=== PATIENT | female | born 1980 | race Caucasian/White ===

== ENCOUNTER 2020-07-12 13:59 | Emergency (ER) | payer BC, OTHER ==
[~2020-07-12] VITALS: Ht 165 cm; Wt 55.0 kg
--- NOTE | 2020-07-12 14:20 | ED General ---
General Chief Complaint: Allergic Reaction Stated Complaint: HIGH BLOOD PRESSURE Source of Information: Patient Exam Limitations: No Limitations History of Present Illness Date Seen by Provider: Jul 12, 2020 Time Seen by Provider: 13:59 Initial Comments Patient presents ER by private conveyance from the clinic where she was receiving her COVID-19 vaccine approximately 20 minutes prior when she started having a shaking episode and noticed her blood pressure around 220/150. She has a history of high blood pressure and several of her family members have had coronary disease and hypertension. She has been treated on multiple medications for her hypertension and had very labile results having to come off the medic ann on March,. 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 She is only on gabapentin for a pinched nerve in her neck at this time. She notices that her blood pressure typically goes up with her periods and she just started her menstrual cycle. She is not having any chest pain shortness of air but she is having some shaking and feels like her vision is narrowing and she is going to pass out. She says she does have a history of some anxiety and has had to use Ativan in the past but does not use anything for anxiety presently because she had some bad adverse effects from Cymbalta. Her father had early coronary onset with heart attack at age 58. She reports her blood pressure has been as high as 250/160 in the past. Allergies and Home Medications Allergies Coded Allergies: metoclopramide (Verified Allergy, Unknown, 07/12/20) prasterone (DHEA) (Verified Allergy, Unknown, 07/12/20) prochlorperazine (Verified Allergy, Unknown, 07/12/20) promethazine (Verified Allergy, Unknown, 07/12/20) duloxetine (Verified Adverse Reaction, Unknown, 07/12/20) Patient Home Medication List Home Medication List Reviewed: Yes Review of Systems Review of Systems Constitutional: No chills, No fever, No malaise EENTM: No ear discharge, No ear pain Respiratory: No cough, No short of breath Cardiovascular: see HPI; No chest pain, No edema, No Hx of Intervention Gastrointestinal: No abdominal pain, No nausea, No vomiting Genitourinary: No discharge, No dysuria Musculoskeletal: No back pain, No joint pain; neck pain (chronic) All Other Systems Reviewed Negative Unless Noted: Yes Past [id number] Hx Patient Social History Alcohol Use: Denies Use Smoking Status: Former Smoker Type Used: Cigarettes Former Smoker, Quit: Apr 28, 2020 Physical Exam Vital Signs Vital Signs - First Documented 07/12/20 14:35 Temp 36.2 Pulse 95 Resp 18 B/P (MAP) 199/117 (144) Pulse Ox 100 O2 Delivery Room Air Capillary Refill : Height, Weight, BMI Height: '" Weight: lbs. oz. kg; BMI Method: General Appearance: Anxious, Moderate Distress Eyes: Bilateral Eye Normal Inspection, Bilateral Eye PERRL, Bilateral Eye EOMI HEENT: PERRL/EOMI, Pharynx Normal, Moist Mucous Membranes Neck: Full Range of Motion, Normal Inspection, Non Tender Respiratory: Lungs Clear, Normal Breath Sounds, No Accessory Muscle Use, No Respiratory Distress Cardiovascular: Regular Rate, Rhythm, No Edema, Normal Peripheral Pulses Gastrointestinal: Non Tender, Soft Neurologic/Psychiatric: Alert, Oriented x3, Other (Anxious affect, tremulous) Skin: Normal Color, Warm/Dry Progress/Results/Core Measures Suspected Sepsis SIRS Temperature: Pulse: Respiratory Rate: Laboratory Tests 07/12/20 14:11: White Blood Count 4.8 Blood Pressure / Mean: Laboratory Tests 07/12/20 14:11: Creatinine 0.80, Platelet Count 171, Total Bilirubin 0.3 Results/Orders Lab Results Laboratory Tests Test 07/12/20 14:11 07/12/20 14:15 Range/Units White Blood Count 4.8 4.3-11.0 10^3/uL Red Blood Count 3.91 L 4.35-5.85 10^6/uL Hemoglobin 12.0 11.5-16.0 G/DL Hematocrit 36 35-52 % Mean Corpuscular Volume 93 80-99 FL Mean Corpuscular Hemoglobin 31 25-34 PG Mean Corpuscular Hemoglobin Concent 33 32-36 G/DL Red Cell Distribution Width 13.2 10.0-14.5 % Platelet Count 171 130-400 10^3/uL Mean Platelet Volume 13.0 H 7.4-10.4 FL Immature Granulocyte % (Auto) 0 % Neutrophils (%) (Auto) 48 42-75 % Lymphocytes (%) (Auto) 38 12-44 % Monocytes (%) (Auto) 12 0-12 % Eosinophils (%) (Auto) 1 0-10 % Basophils (%) (Auto) 1 0-10 % Neutrophils # (Auto) 2.3 1.8-7.8 X 10^3 Lymphocytes # (Auto) 1.8 1.0-4.0 X 10^3 Monocytes # (Auto) 0.6 0.0-1.0 X 10^3 Eosinophils # (Auto) 0.1 0.0-0.3 10^3/uL Basophils # (Auto) 0.0 0.0-0.1 10^3/uL Immature Granulocyte # (Auto) 0.0 0.0-0.1 10^3/uL Sodium Level 142 135-145 MMOL/L Potassium Level 3.8 3.6-5.0 MMOL/L Chloride Level 103 98-107 MMOL/L Carbon Dioxide Level 27 21-32 MMOL/L Anion Gap 12 5-14 MMOL/L Blood Urea Nitrogen 13 7-18 MG/DL Creatinine 0.80 0.60-1.30 MG/DL Estimat Glomerular Filtration Rate > 60 BUN/Creatinine Ratio 16 Glucose Level 99 70-105 MG/DL Calcium Level 9.7 8.5-10.1 MG/DL Corrected Calcium 8.5-10.1 MG/DL Total Bilirubin 0.3 0.1-1.0 MG/DL Aspartate Amino Transf (AST/SGOT) 14 5-34 U/L Alanine Aminotransferase (ALT/SGPT) 7 0-55 U/L Alkaline Phosphatase 69 40-136 U/L Troponin I < 0.30 <0.30 NG/ML C-Reactive Protein 0.14 <0.50 MG/DL Total Protein 7.9 6.4-8.2 GM/DL Albumin 5.0 H 3.2-4.5 GM/DL Blood Gas Puncture Site RT RADIAL Blood Gas Patient Temperature 36.2 Arterial Blood pH 7.46 H 7.37-7.43 Arterial Blood Partial Pressure CO2 41 35-45 MMHG Arterial Blood Partial Pressure O2 87 79-93 MMHG Arterial Blood HCO3 29 H 23-27 MMOL/L Arterial Blood Total CO2 30.5 21.0-31.0 MMOL/L Arterial Blood Oxygen Saturation 97 94-100 % Arterial Blood Base Excess 4.9 H -2.5-2.5 MMOL/L Jero Test OK Blood Gas Ventilator Setting NO Blood Gas Inspired Oxygen ROOM AIR My Orders Orders - BRIANNE RAMIREZ Arterial Blood Gas (07/12/20 14:20) Cbc With Automated Diff (07/12/20 14:20) Comprehensive Metabolic Panel (07/12/20 14:20) Crp Fs (07/12/20 14:20) Troponin I Fs (07/12/20 14:20) Continuous Ekg Monitoring (07/12/20 14:20) Ekg Tracing (07/12/20 14:20) Lorazepam Injection (Ativan Injection) (07/12/20 14:30) Medications Given in ED Current Medications Medications Dose Ordered Sig/Paul Route Start Time Stop Time Status Last Admin Dose Admin Lorazepam 0.5 mg ONCE ONCE IVP 07/12/20 14:30 07/12/20 14:31 DC 07/12/20 14:30 0.5 MG Vital Signs/I&O 07/12/20 14:35 Temp 36.2 Pulse 95 Resp 18 B/P (MAP) 199/117 (144) Pulse Ox 100 O2 Delivery Room Air Capillary Refill : Progress Note #1: Time: 14:20 Progress Note Suspect anxiety attack related to the proximity of getting the Covid vaccine 20 minutes prior to it starting. She is shaking and has narrowed vision. We will get an ABG to help confirm this differential. However when she arrives her blood pressure is 220/120 and just as she sits and rests her blood pressure has already come down to 190/96. Plan to give her half a milligram of Ativan while we work her up for other possibilities. If the ABG does not support our differential we may do a rule out troponin. She says in the past her BNP and D- dimer is always elevated. Pulmonary embolism is not on the differential as it does not match her history and she has normal oxygen saturation and heart rate in the 80s. She denies any chest pain but she does have a significant coronary history and we discussed these risk factors and she is appropriately followed by primary care team and nephrology and they are attempting to manage her very labile blood pressure. The suspicion is that if this is an anxiety attack brought on by the Covid vaccine perhaps the hypertension is just following the anxiety attack. She does endorse having panic attacks with severely elevated blood pressure in the past when she had to be in the hospital and said she was very scared having some any people standing over her and describe the situation very similar to today Progress Note #2: Time: 15:22 Progress Note Patient's ABG supports alkalosis likely related to anxiety or pain. She is not describing any pain however. She is feeling much better after half milligram of Ativan and her blood pressure is 169/90. Explained her that she likely has some kind of underlying labile hypertension resulting in hypertensive urgency's which then spur a panic attack and perhaps by treating her panic attacks this might help her get out of these hypertensive urgency sooner like we did today. She says she has a history of narcotic abuse though she does not want to use or have access to benzodiazepines. We then offered hydroxyzine which her mother says she has used in the past with good luck and the patient says she will try that. We have encouraged her to follow-up with her primary care provider for further management. ECG Initial ECG Impression Date: Jul 12, 2020 Initial ECG Impression Time: 14:17 Initial ECG Rate: 78 Initial ECG Rhythm: Normal Sinus Initial ECG Intervals: QT (479 ms) Initial ECG Impression: Normal Initial ECG Comparisson: No Previous ECG Available Comment Normal sinus rhythm without clinically relevant ST elevation or depression. Borderline prolonged QTC with 479 ms. Departure Impression Primary Impression: Hypertensive urgency Additional Impressions: Panic attack as reaction to stress Labile hypertension Disposition: 01 HOME, SELF-CARE Condition: Improved Departure-Patient Inst. Decision time for Depature: 15:24 Referrals: NO,LOCAL PHYSICIAN (PCP/Family) Primary Care Physician Patient Instructions: High Blood Pressure Emergencies, Panic Disorder (DC) Add. Discharge Instructions: At the start of a anxiety attack or you feel narrowing vision, cold clammy hands, numbness and tingling in the mouth fingers or toes or increased breathing rate you should take 1 tablet of hydroxyzine every 6 hours as a general sedative. You need to continue work with your primary care doctor at a follow-up appointment in the next few weeks on your labile blood pressure and hypertensive urgency's. Return to the nearest ER if you are having significant chest pain, shortness of air or other worrisome symptoms. All discharge instructions reviewed with patient and/or family. Voiced understanding. Scripts Hydroxyzine HCl (Hydroxyzine HCl) 25 Mg Tablet 25 MG PO Q6H PRN for ANXIETY, #15 TAB 0 Refills Prov: BRIANNE RAMIREZ 07/12/20 BRIANNE RAMIREZ Jul 12, 2020 14:20
[2020-07-12] MEDS ORDERED: LORazepam INJ 2 MG/ML (ATIVAN) VIAL IVP ONE (14:30)
[2020-07-12 14:35] LABS: ABG BASE EXCESS 4.9 MMOL/L (-2.5-2.5); ABG OXYGEN SATURATION 97 % (94-100); ABG PCO2 41 MMHG (35-45); ABG PH 7.46 (7.37-7.43); ABG PO2 87 MMHG (79-93); ABG TCO2 30.5 MMOL/L (21.0-31.0)
[2020-07-12 14:36] LABS: ALLENS TEST OK; INSPIRED O2 ROOM AIR; PATIENT TEMP 36.2; VENTILATOR NO
[2020-07-12 14:37] LABS: HEMATOCRIT 36 % (35-52); MEAN CORPUSCULAR HEMOGLOBIN 31 PG (25-34); MEAN CORPUSCULAR HGB CONC 33 G/DL (32-36); MEAN CORPUSCULAR VOLUME 93 FL (80-99); PLATELET COUNT 171 10^3/uL (130-400); WHITE BLOOD COUNT 4.8 10^3/uL (4.3-11.0)
[2020-07-12 14:38] LABS: BASOPHILS % (AUTO) 1 % (0-10); EOSINOPHILS # (AUTO) 0.1 10^3/uL (0.0-0.3); EOSINOPHILS % (AUTO) 1 % (0-10); LYMPHOCYTES # (AUTO) 1.8 X 10^3 (1.0-4.0); LYMPHOCYTES % (AUTO) 38 % (12-44); MONOCYTES # (AUTO) 0.6 X 10^3 (0.0-1.0); MONOCYTES % (AUTO) 12 % (0-12); NEUTROPHILS # (AUTO) 2.3 X 10^3 (1.8-7.8); NEUTROPHILS % (AUTO) 48 % (42-75)
[2020-07-12 14:52] LABS: BUN/CREATININE RATIO 16; CARBON DIOXIDE 27 MMOL/L (21-32); CHLORIDE 103 MMOL/L (98-107); GFR ESTIMATED > 60; GLUCOSE 99 MG/DL (70-105); POTASSIUM 3.8 MMOL/L (3.6-5.0); SODIUM 142 MMOL/L (135-145)
[2020-07-12 14:53] LABS: ALANINE AMINOTRANSFERASE 7 U/L (0-55); ALKALINE PHOSPHATASE 69 U/L (40-136); BILIRUBIN,TOTAL 0.3 MG/DL (0.1-1.0); CALCIUM 9.7 MG/DL (8.5-10.1); TOTAL PROTEIN 7.9 GM/DL (6.4-8.2)
[2020-07-12] MEDS ORDERED: HYDR-700 PO (15:26)
[2020-07-12 15:41] VITALS: BP 158/116
== END 2020-07-12 15:40 | disposition home or self-care (01) ==
LOC: ER FS 14:02
DX: I16.0 Hypertensive urgency (principal); F43.0 Acute stress reaction; R09.89 Other specified symptoms and signs involving the circulatory and respiratory systems; Z87.891 Personal history of nicotine dependence; Z88.8 Allergy status to other drugs, medicaments and biological substances; Z79.899 Other long term (current) drug therapy
CPT/HCPCS: 36415; 80053; 82805; 84484; 85025; 86141